=== PATIENT | male | born 1960 | race African-American/Black ===

== ENCOUNTER 2019-02-07 09:42 | Emergency (ER) | payer OTHER ==
[2019-02-07 10:48] LABS: Urine Blood 1+ (NEG); Urine Glucose NEGATIVE (NEG); Urine Protein NEGATIVE (NEG)
--- NOTE | 2019-02-07 11:58 | EDPHYS ---
Physician Documentation [facility] Name: Rohit Allen Age: 58 yrs Sex: Male : 1960 Arrival Date: 02/07/2019 Time: 09:43 Bed 8 Private MD: ED Physician Dima Webb HPI: 02/07 10:04 This 58 yrs old Black Male presents to ER via Wheelchair with complaints of dysuria. jmm 10:04 The patient presents with urinary symptoms, dysuria. Onset: The symptoms/episode jmm began/occurred gradually, today. Modifying factors: The symptoms are alleviated by nothing, the symptoms are aggravated by nothing. Associated signs and symptoms: Pertinent negatives: abdominal pain, fever, hematuria, nausea, vomiting. This is a 58 year old male with a history of htn, that presents to the ED with complaints of increased urgency on urination beginning today. Denies fever, denies abdominal pain, denies back pain, denies chest pain, denies shortness of breath. . Historical: - Allergies: 09:52 No Known Allergies; hb - Home Meds: 09:52 lisinopril 10 mg Oral tab 1 tab once daily [Active]; hb - PMHx: 09:52 CVA; Hypertension; neck fracture; hb - PSHx: 09:52 None; hb - Immunization history:: Adult Immunizations unknown. - Social history:: Smoking status: Patient/guardian denies using tobacco. - Ebola Screening: : Patient negative for fever greater than or equal to 101.5 degrees Fahrenheit, and additional compatible Ebola Virus Disease symptoms Patient denies exposure to infectious person Patient denies travel to an Ebola-affected area in the 21 days before illness onset No symptoms or risks identified at this time. ROS: 10:04 Constitutional: Negative for fever, chills, and weight loss, Cardiovascular: Negative jmm for chest pain, palpitations, and edema, Respiratory: Negative for shortness of breath, cough, wheezing, and pleuritic chest pain, Abdomen/GI: Negative for abdominal pain, nausea, vomiting, diarrhea, and constipation, Back: Negative for injury and pain. 10:04 MS/Extremity: Negative for injury and deformity, Skin: Negative for injury, rash, and discoloration, Neuro: Negative for headache, weakness, numbness, tingling, and seizure. 10:04 : Positive for urinary symptoms. 10:04 All other systems are negative. Exam: 10:04 Constitutional: This is a well developed, well nourished patient who is awake, alert, jmm and in no acute distress. Head/Face: atraumatic. Eyes: EOMI, no conjunctival erythema appreciated ENT: Moist Mucus Membranes Neck: Trachea midline, Supple Chest/axilla: Normal chest wall appearance and motion. Cardiovascular: Regular rate and rhythm. No edema appreciated Respiratory: Normal respirations, no respiratory distress appreciated 10:04 Abdomen/GI: Inspection: abdomen appears normal, Bowel sounds: normal, Palpation: abdomen is soft and non-tender, in all quadrants. 10:04 Back: pain, is absent, CVA tenderness, is absent. 10:04 Musculoskeletal/extremity: ROM: intact in all extremities. 10:04 Skin: Appearance: Color: normal in color. 10:04 Neuro: Orientation: is normal, Mentation: is normal, Memory: is normal. 10:04 Psych: Behavior/mood is pleasant, cooperative. Vital Signs: 09:51 BP 160 / 96; Pulse 81; Resp 16; Temp 98.3; Pulse Ox 100% on R/A; Weight 83.91 kg; hb Height 6 ft. (182.88 cm); Pain 0/10; 12:10 BP 142 / 88; Pulse 80; Resp 17; Pulse Ox 99% on R/A; Pain 0/10; sg 09:51 Body Mass Index 25.09 (83.91 kg, 182.88 cm) hb MDM: 10:04 Patient medically screened. vangie 11:55 Data reviewed: vital signs, nurses notes. Counseling: I had a detailed discussion with [facility] the patient and/or guardian regarding: the historical points, exam findings, and any diagnostic results supporting the discharge/admit diagnosis, lab results, the need for outpatient follow up, to return to the emergency department if symptoms worsen or persist or if there are any questions or concerns that arise at home. ED course: Patient is alert and non toxic in appearance in the ED. UA shows blood. Patient will be treated with oral abx. Patient states having UTI's in the past. Due to blood advised to follow up with urology for further evaluation. patient understood and agrees with the plan of care. . 02/07 10:44 Order name: Urine Dipstick--Ancillary (enter results); Complete Time: 10:49 bd Administered Medications: No medications were administered Disposition: 13:31 Co-signature as Attending Physician, Dima Webb MD I agree with the assessment and [facility] plan of care. Disposition: 02/07/19 11:57 Discharged to Home. Impression: Dysuria. - Condition is Stable. - Discharge Instructions: Dysuria. - Prescriptions for Cephalexin 500 mg Oral Capsule - take 1 capsule by ORAL route every 12 hours for 10 days; 20 capsule. - Medication Reconciliation Form, Thank You Letter, Antibiotic Education, Prescription Opioid Use form. - Follow up: Torito Gomez MD; When: 2 - 3 days; Reason: Recheck today's complaints, Continuance of care, Re-evaluation by your physician. Signatures: Dispatcher [employer] EDMS Lamont Mandujano, RN RN Dima Carr MD MD cha Mickail, Joel, PA PA [facility] Cindy Nicole RN RN Corrections: (The following items were deleted from the chart) 11:52 11:50 This 58 yrs old Black Male presents to ER via Wheelchair with complaints of jmm dysuria. [facility] 12:26 11:57 02/07/2019 11:57 Discharged to Home. Impression: Dysuria. Condition is Stable. sg Forms are Medication Reconciliation Form, Thank You Letter, Antibiotic Education, Prescription Opioid Use. Follow up: Torito Gomez; When: 2 - 3 days; Reason: Recheck today's complaints, Continuance of care, Re-evaluation by your physician. jmm
--- NOTE | 2019-02-07 11:58 | ER ---
Nurse's Notes [facility] Name: Rohit Allen Age: 58 yrs Sex: Male : 1960 Arrival Date: 02/07/2019 Time: 09:43 Bed 8 Private MD: Diagnosis: Dysuria Presentation: 02/07 09:49 Presenting complaint: Patient states: "I am worried I may have an infection somewhere, hb I do not have a bowel movement every day." Last BM was today. Denies pain/fever. Transition of care: patient was not received from another setting of care. Onset of symptoms was February 07, 2019. Risk Assessment: Do you want to hurt yourself or someone else? Patient reports no desire to harm self or others. Initial Sepsis Screen: Does the patient meet any 2 criteria? No. Patient's initial sepsis screen is negative. Does the patient have a suspected source of infection? No. Patient's initial sepsis screen is negative. Care prior to arrival: None. 09:49 Method Of Arrival: Wheelchair hb 09:49 Acuity: FOX 4 hb Historical: - Allergies: 09:52 No Known Allergies; hb - Home Meds: 09:52 lisinopril 10 mg Oral tab 1 tab once daily [Active]; hb - PMHx: 09:52 CVA; Hypertension; neck fracture; hb - PSHx: 09:52 None; hb - Immunization history:: Adult Immunizations unknown. - Social history:: Smoking status: Patient/guardian denies using tobacco. - Ebola Screening: : Patient negative for fever greater than or equal to 101.5 degrees Fahrenheit, and additional compatible Ebola Virus Disease symptoms Patient denies exposure to infectious person Patient denies travel to an Ebola-affected area in the 21 days before illness onset No symptoms or risks identified at this time. Screenin:10 Abuse screen: Denies threats or abuse. Denies injuries from another. Nutritional sg screening: No deficits noted. Tuberculosis screening: No symptoms or risk factors identified. Never had TB. Fall Risk None identified. Assessment: 10:10 General: Appears in no apparent distress. comfortable, well groomed, well developed, sg well nourished, Behavior is calm, cooperative, appropriate for age. Pain: Denies pain. Neuro: Level of Consciousness is awake, alert, obeys commands, Oriented to person, place, time, situation, Moves all extremities. Full function Speech is normal, Facial symmetry appears normal. Cardiovascular: Patient's skin is warm and dry. Chest pain is denied. Respiratory: Airway is patent Respiratory effort is even, unlabored, Respiratory pattern is regular, symmetrical. GI: Abdomen is round non-distended. : No signs and/or symptoms were reported regarding the genitourinary system. EENT: No signs and/or symptoms were reported regarding the EENT system. Derm: Skin is pink, warm \\T\\ dry. Musculoskeletal: Circulation, motion, and sensation intact. Range of motion:. 12:00 Reassessment: Patient appears in no apparent distress at this time. Patient and/or sg family updated on plan of care and expected duration. Pain level reassessed. Patient is alert, oriented x 3, equal unlabored respirations, skin warm/dry/pink. Patient denies pain at this time. Vital Signs: 09:51 BP 160 / 96; Pulse 81; Resp 16; Temp 98.3; Pulse Ox 100% on R/A; Weight 83.91 kg; hb Height 6 ft. (182.88 cm); Pain 0/10; 12:10 BP 142 / 88; Pulse 80; Resp 17; Pulse Ox 99% on R/A; Pain 0/10; sg 09:51 Body Mass Index 25.09 (83.91 kg, 182.88 cm) hb ED Course: 09:43 Patient arrived in ED. as 09:51 Triage completed. hb 09:51 Arm band placed on. hb 09:55 Lamont Mandujano, RN is Primary Nurse. sg 10:00 Patient has correct armband on for positive identification. Bed in low position. Call sg light in reach. Side rails up X2. Pulse ox on. NIBP on. Door closed. Warm blanket given. Head of bed elevated. 10:04 Angel Lopez PA is PHCP. [facility] 10:04 Dima Webb MD is Attending Physician. m 10:10 No provider procedures requiring assistance completed. sg 10:50 Assisted to bathroom. sg 11:54 Assisted to bathroom. sg 11:56 Torito Gomez MD is Referral Physician. [facility] 12:15 Patient did not have IV access during this emergency room visit. sg Administered Medications: No medications were administered Outcome: 11:57 Discharge ordered by . zach 12:15 Discharged to home via wheelchair, with family. sg 12:15 Condition: good 12:15 Discharge instructions given to patient, Instructed on discharge instructions, follow up and referral plans. medication usage, safety practices, Demonstrated understanding of instructions, follow-up care, medications, Prescriptions given X 1. 12:26 Patient left the ED. sg Signatures: Lamont Mandujano RN RN Angel Alvarez PA PA jmm Martinez, Amelia as Baxter, Heather, RN RN
[2019-02-07 12:32] VITALS: BP 160/96; TEMP 98.3; O2SAT 100
== END 2019-02-07 12:26 | disposition home or self-care (01) ==
LOC: ER 09:42
DX: R30.0 Dysuria (principal); I10 Essential (primary) hypertension; Z86.73 Personal history of transient ischemic attack (TIA), and cerebral infarction without residual deficits
CPT/HCPCS: 81003; 99283

== ENCOUNTER 2020-10-24 23:57 | Emergency (ER) | payer OTHER ==
--- OUTSIDE RECORDS SUMMARY | 2020-10-25 00:01 | XMS REPORT | Continuity of Care Document ---
:1960 Author Organization [facility] t Address [address] [place] [address] Care Team Providers Name Role Phone Wilder Rodas Attending Clinician Doctor Unassigned, Name Attending Clinician Unavailable Problems This patient has no known problems. Allergies, Adverse Reactions, Alerts This patient has no known allergies or adverse reactions. Medications This patient has no known medications. Procedures This patient has no known procedures. Encounters Start End Encounter Admission Attending Care Care Encounter Source Date/Time Date/Time Type Type Clinicians Facility Department ID 2020-02-13 2020-02-13 Office Belinda [facility] [id number] 08:53:03 09:23:03 Visit Ramsey ORTIZ [id number] [facility] [id number] PEDIATRIC [id number] AND [address] [place] [address] 2020-02-13 2020-02-13 Orders Doctor MENDOZA [id number] 00:00:00 00:00:00 Only UnassDERICK lozano [id number] [place] [facility] [id number] Results This patient has no known results.
[2020-10-25] MEDS ORDERED: FLEET ENEMA ADULT PR ONE (00:36)
[2020-10-25] MEDS ORDERED: NA CHLORIDE 0.9% 1,000 ML ONE (00:36)
[2020-10-25 00:44] LABS: Absolute Lymphocytes (CBC) 2.2 K/uL (0.7-4.9); Basophils % 1.1 % (0-1.3)
[2020-10-25 00:47] LABS: Hematocrit 40.4 % (39.6-49.0); Lymphocytes % 33.1 % (15.3-44.8); MPV 10.1 fL (7.6-11.3)
[2020-10-25 00:56] LABS: ALT/SGPT 30 U/L (12-78); AST/SGOT 21 U/L (15-37); Albumin 3.5 g/dL (3.4-5.0); Alkaline Phosphatase 89 U/L (45-117); BUN Blood Urea Nitrogen 16 mg/dL (7-18); Bicarbonate 22 mmol/L (21-32); Bilirubin Direct < 0.1 mg/dL (0-0.2); Bilirubin Total 0.3 mg/dL (0.2-1.0); Glucose Level 108 mg/dL (74-106); Lipase 64 U/L (73-393); Potassium 3.5 mmol/L (3.5-5.1); Protein, Total 7.6 g/dL (6.4-8.2); Sodium Level 140 mmol/L (136-145)
[2020-10-25 01:39] LABS: Blood Morphology Comment NOT SEEN (NOT SEEN); Platelet Estimate ADEQ
--- NOTE | 2020-10-25 03:41 | ER ---
Nurse's Notes [facility] Name: Rohit Allen Age: 60 yrs Sex: Male : 1960 Arrival Date: 10/25/2020 Time: 00:00 Bed 20 Private MD: Diagnosis: Constipation, unspecified;Dehydration Presentation: 10/25 00:10 Chief complaint: Patient states: constipation x2 days. Chief complaint:. Chief ak2 complaint:. Coronavirus screen: Client denies travel out of the [place] in the last 14 days. At this time, the client does not indicate any symptoms associated with coronavirus-19. Ebola Screen: Patient negative for fever greater than or equal to 101.5 degrees Fahrenheit, and additional compatible Ebola Virus Disease symptoms Patient denies exposure to infectious person. Patient denies travel to an Ebola-affected area in the 21 days before illness onset. No symptoms or risks identified at this time. Initial Sepsis Screen: Does the patient meet any 2 criteria? No. Patient's initial sepsis screen is negative. Does the patient have a suspected source of infection? No. Patient's initial sepsis screen is negative. Risk Assessment: Do you want to hurt yourself or someone else? Patient reports no desire to harm self or others. Onset of symptoms was October 21, 2020. 00:10 Method Of Arrival: Ambulatory ak2 00:10 Acuity: FOX 3 ak2 Triage Assessment: 00:13 General: Appears in no apparent distress. Behavior is calm, cooperative. ak2 Historical: - Allergies: 01:08 No Known Allergies; ak2 - Home Meds: 00:12 lisinopril 10 mg Oral tab 1 tab once daily [Active]; ak2 - PMHx: 00:12 CVA; Hypertension; neck fracture; ak2 - Immunization history:: Adult Immunizations up to date. - Social history:: Smoking status: unknown. - Family history:: not pertinent. - Hospitalizations: : No recent hospitalization is reported. Screenin:12 Abuse screen: Denies threats or abuse. Denies injuries from another. Nutritional ak2 screening: No deficits noted. Tuberculosis screening: No symptoms or risk factors identified. Fall Risk None identified. Assessment: 00:12 Pain: Complains of pain in abdomen. GI: Bowel sounds present X 4 quads. ak2 00:49 Reassessment: Patient and/or family updated on plan of care and expected duration. Pain ak2 level reassessed. 01:27 Reassessment: Patient and/or family updated on plan of care and expected duration. Pain ak2 level reassessed. 03:04 Reassessment: Patient and/or family updated on plan of care and expected duration. Pain ak2 level reassessed. Vital Signs: 00:10 BP 146 / 75; Pulse 71; Resp 18; Temp 97.3; Pulse Ox 100% on R/A; ak2 01:26 BP 137 / 68; Pulse 72; Resp 18; Pulse Ox 98% on R/A; ak2 03:04 BP 140 / 75; Pulse 72; Resp 18; Pulse Ox 100% on R/A; ak2 ED Course: 00:00 Patient arrived in ED. bp1 00:06 Ferdinand Kam MD is Attending Physician. rn 00:11 Triage completed. ak2 00:12 Patient has correct armband on for positive identification. ak2 00:12 No provider procedures requiring assistance completed. Inserted saline lock: 20 gauge ak2 in right forearm, using aseptic technique. 00:13 Josiah Bran is Primary Nurse. ak2 02:11 Abdomen In Process Unspecified. EDMS Administered Medications: 00:23 Drug: NS 0.9% 1000 ml Route: IV; Rate: 1000 ml; Site: right forearm; ak2 00:23 Drug: Fleet Enema (sodium phosphate) 133 ml Route: NH; ak2 Outcome: 03:41 Discharge ordered by . rn 03:41 Discharged to home ambulatory. ak2 03:41 Condition: good 03:41 Discharge instructions given to patient. 03:49 Patient left the ED. ak2 Signatures: Dispatcher [employer] EDMS Ferdinand Kam MD MD rn Clarissa Recinos bp1 Josiah Bran ak2
--- NOTE | 2020-10-25 03:41 | EDPHYS ---
Physician Documentation [facility] Name: Rohit Allen Age: 60 yrs Sex: Male : 1960 Arrival Date: 10/25/2020 Time: 00:00 Bed 20 Private MD: ED Physician Ferdinand Kam HPI: 10/25 00:13 This 60 yrs old Black Male presents to ER via Ambulatory with complaints of rn Constipation. 00:13 The patient presents with constipation. Onset: The symptoms/episode began/occurred 3 rn day(s) ago. The symptoms do not radiate. Associated signs and symptoms: Pertinent positives: nausea and vomiting, constipation, Pertinent negatives: blood in stools, diarrhea, fever. The symptoms are described as crampy. Modifying factors: The symptoms are alleviated by nothing, the symptoms are aggravated by nothing. Severity of pain: At its worst the pain was very mild in the emergency department the pain has improved. The patient has experienced similar episodes in the past. The patient has not recently seen a physician. Reports 3 days of constipation, tried laxative and not helping. Denies current abd pain. Reports thinks threw up once, no fever. Reports is passing some gas. NO hx of abd surgery. . Historical: - Allergies: 01:08 No Known Allergies; ak2 - Home Meds: 00:12 lisinopril 10 mg Oral tab 1 tab once daily [Active]; ak2 - PMHx: 00:12 CVA; Hypertension; neck fracture; ak2 - Immunization history:: Adult Immunizations up to date. - Social history:: Smoking status: unknown. - Family history:: not pertinent. - Hospitalizations: : No recent hospitalization is reported. ROS: 00:13 Constitutional: Negative for fever, chills, and weight loss, Eyes: Negative for injury, rn pain, redness, and discharge, Neck: Negative for injury, pain, and swelling, Cardiovascular: Negative for chest pain, palpitations, and edema, Respiratory: Negative for shortness of breath, cough, wheezing, and pleuritic chest pain, Abdomen/GI: Negative for abdominal pain, diarrhea Back: Negative for injury and pain, : Negative for injury, bleeding, discharge, and swelling, MS/Extremity: Negative for injury and deformity, Skin: Negative for injury, rash, and discoloration, Neuro: Negative for headache, weakness, numbness, tingling, and seizure. Exam: 00:13 Constitutional: This is a well developed, well nourished patient who is awake, alert, rn and in no acute distress. Head/Face: Normocephalic, atraumatic. Eyes: Periorbital areas with no swelling, redness, or edema. ENT: dry MM Cardiovascular: Regular rate and rhythm. No pulse deficits. Respiratory: No increased work of breathing, no retractions or nasal flaring. Abdomen/GI: soft, non-tender, no masses Skin: Warm, dry MS/ Extremity: Pulses equal, no cyanosis. Neurovascular intact. Full, normal range of motion. Equal circumference. Neuro: Awake and alert, GCS 15 Vital Signs: 00:10 BP 146 / 75; Pulse 71; Resp 18; Temp 97.3; Pulse Ox 100% on R/A; ak2 01:26 BP 137 / 68; Pulse 72; Resp 18; Pulse Ox 98% on R/A; ak2 03:04 BP 140 / 75; Pulse 72; Resp 18; Pulse Ox 100% on R/A; ak2 MDM: 00:06 Patient medically screened. rn 00:16 Differential diagnosis: appendicitis, bowel obstruction, diverticulitis, gastritis, rn non-specific abd pain, pancreatitis, Peptic Ulcer Disease, constipation, dehydration, small bowel obstruction, colitis, proctitis. 03:39 Data reviewed: vital signs, nurses notes, lab test result(s), radiologic studies, CT rn scan, and as a result, I will discharge patient. Counseling: I had a detailed discussion with the patient and/or guardian regarding: the historical points, exam findings, and any diagnostic results supporting the discharge/admit diagnosis, lab results, radiology results, the need for outpatient follow up, to return to the emergency department if symptoms worsen or persist or if there are any questions or concerns that arise at home. Response to treatment: the patient's symptoms have markedly improved after treatment, and as a result, I will discharge patient. Special discussion: I discussed with the patient/guardian in detail that at this point there is no indication for admission to the hospital. It is understood, however, that if the symptoms persist or worsen the patient needs to return immediately for re-evaluation. ED course: Pt had good bowel movement here, ct no acute findings, will dc home with instructions to stay hydrated. . 10/25 00:13 Order name: Basic Metabolic Panel rn 10/25 00:13 Order name: CBC with Diff; Complete Time: 02:59 rn 10/25 00:13 Order name: Hepatic Function; Complete Time: 01:37 rn 10/25 00:13 Order name: Lipase; Complete Time: 01:37 rn 10/25 00:14 Order name: Basic Metabolic Panel; Complete Time: 01:37 EDMS 10/25 00:51 Order name: Manual Differential; Complete Time: 02:59 EDMS 10/25 00:13 Order name: IV Saline Lock rn 10/25 00:13 Order name: Labs collected and sent rn 10/25 01:45 Order name: Abdomen EDMS Administered Medications: 00:23 Drug: NS 0.9% 1000 ml Route: IV; Rate: 1000 ml; Site: right forearm; ak2 00:23 Drug: Fleet Enema (sodium phosphate) 133 ml Route: MD; ak2 Disposition Summary: 10/25/20 03:41 Discharge Ordered Location: Home rn Problem: new rn Symptoms: have improved rn Condition: Stable rn Diagnosis - Constipation, unspecified rn - Dehydration rn Followup: rn - With: Private Physician - When: As needed - Reason: Recheck today's complaints, Re-evaluation by your physician Discharge Instructions: - Discharge Summary Sheet rn - Constipation, Adult rn - Dehydration, Adult rn Forms: - Medication Reconciliation Form rn - Thank You Letter rn - Antibiotic rn acute dialysis - Prescription Opioid Use rn Signatures: Dispatcher [employer] Ferdinand Pizarro MD MD rn Kapolka, Anthony ak2 Corrections: (The following items were deleted from the chart) 01:45 00:14 Abdomen Pelvis W Con+CT.RAD.BRZ ordered. EDWY EDWY
[2020-10-25 03:59] VITALS: TEMP 97.3
[2020-10-25 04:01] VITALS: BP 140/75; O2SAT 100
--- NOTE | 2020-10-25 12:23 | RAD REPORT ---
EXAM DESCRIPTION: CT Abdomen and Pelvis Without Intravenous Contrast CLINICAL HISTORY: The patient is 60 years old and is Male; CONSTIPATION TECHNIQUE: Axial computed tomography images of the abdomen and pelvis without intravenous contrast. Sagittal and coronal reformatted images were created and reviewed. This CT exam was performed usi ng one or more of the following dose reduction techniques: automated exposure control, adjustment o f the mA and/or kV according to patient size, and/or use of iterative reconstruction technique. COMPARISON: No relevant prior studies available. FINDINGS: Lung bases: Unremarkable. No mass. No consolidation. ABDOMEN: Liver: Scattered tiny low-density lesions in the liver measuring up to 1 cm which are too small to fully characterize but may represent cysts. Gallbladder and bile ducts: Unremarkable. No calcified stones. No ductal dilation. Pancreas: Unremarkable. No ductal dilation. Spleen: Unremarkable. No splenomegaly. Adrenals: Unremarkable. No mass. Kidneys and ureters: Unremarkable. No obstructing stones. No hydronephrosis. Stomach and bowel: Contrast in the small bowel. No obstruction. No mucosal thickening. PELVIS: Appendix: The appendix is normal. Bladder: Unremarkable. No stones. Reproductive: Unremarkable as visualized. ABDOMEN and PELVIS: Intraperitoneal space: Unremarkable. No free air. No significant fluid collection. Bones/joints: Healing right rib fractures. No dislocation. Soft tissues: Unremarkable. Vasculature: Scattered atherosclerotic vascular calcifications. No abdominal aortic aneurysm. Lymph nodes: Unremarkable. No enlarged lymph nodes. IMPRESSION: No acute findings in the abdomen or pelvis. Electronically signed by: Jv Ramos MD 10/25/2020 2:46 AM CDT Due to temporary technical issues with the PACS/Fluency reporting system, reports are being signed by the in house radiologist without review as a courtesy to ensure prompt reporting. The interpreting r adiologist is fully responsible for the content of the report.
== END 2020-10-25 03:49 | disposition home or self-care (01) ==
LOC: ER 23:57
DX: K59.00 Constipation, unspecified (principal); E86.0 Dehydration; I10 Essential (primary) hypertension; Z86.73 Personal history of transient ischemic attack (TIA), and cerebral infarction without residual deficits
CPT/HCPCS: 85025; 80048; 36415; 80076; 83690; 74176; 99283; J7030